=== PATIENT | female | born 1950 | race Caucasian/White ===

== ENCOUNTER 2017-07-18 07:33 | Inpatient (IN) | payer OTHER ==
[2017-07-16 16:55] VITALS: BMI 30.4
[2017-07-18] MEDS ORDERED: oxyCODONE HCL 5 MG TABLET ONE (16:33)
[2017-07-18] MEDS ORDERED: ACETAMINOPHEN 325 MG TABLET (FP) ONE (16:34)
[2017-07-19] MEDS: ACETAMINOPHEN 325 MG TABLET (FP) PO PRN ×3 (01:42→21:46)
[2017-07-19] MEDS ORDERED: LEVOTHYROXINE NA 25 MCG TABLET (FP) ONE (05:22)
[2017-07-19] MEDS ORDERED: LEVOTHYROXINE NA 112 MCG TABLET (FP) ONE (05:22)
[2017-07-19] MEDS: LEVOTHYROXINE 112 MCG, LEVOTHYROXINE 25 MCG PO SCH (06:00)
--- NOTE | 2017-07-19 06:55 | HOSP ---
Subjective - Review of Symptoms Cardiovascular: No: Chest Pain, Palpitations, Light Headedness Gastrointestinal: No: Abdominal Pain Physical Examination Vital Signs: Vital Signs Temperature 98.3 F 07/19/17 06:15 Pulse Rate 66 07/19/17 06:15 Respiratory Rate 20 07/19/17 06:15 Blood Pressure 115/54 07/19/17 06:15 O2 Sat by Pulse Oximetry (%) 94 L 07/19/17 04:00 Constitutional: Yes: Well Nourished, No Distress, Calm Eyes: Yes: WNL, EOM Intact HENT: Yes: Atraumatic, Normocephalic Neck: Yes: Supple, Trachea Midline Cardiovascular: Yes: Regular Rate and Rhythm Respiratory: Yes: Regular, Diminished (diminished on right laterally and lateral apex, present medially, base and medial apex. CTAB throughout on left lung), On Nasal O2 (3L). No: Accessory Muscle Use, SOB, Stridor, Tachypnea Gastrointestinal: Yes: WNL Extremities: Yes: WNL Wound/Incision: Yes: Clean/Dry, Dressing Dry and Intact Hospitalist Encounter Assessment: no documentation to review. called by nursing when patient was c/o of sharp right pain and nurse was unable to hear breath sounds. On my PE pt had right sided breath sounds, however diminished. Chest tube dressing in intact and in place. Chest tube set to wall suction, without any visible air leaks in pleur-vac Pt was resting comfortably on left side. vitals stable. Stat chest xray ordered Dr. Edwards has been called, as per nursing awaiting call back. Recommendations/Interventions: f/u chest xray to assess tube placement and size pneumothorax as the primary to follow-up on results and re-assess the patient. Visit type - Emergency Visit Emergency Visit: No - New Patient This patient is new to me today: Yes Date on this admission: 07/19/17 - Critical Care Critical Care patient: No
[2017-07-19 08:00] LABS: BASO % 0.4 % (0-2.0); EOS % 4.1 % (0-4.5); HEMATOCRIT 41.2 % (32.4-45.2); LYMPH % 16.5 % (8-40); MCH 30.6 pg (25.7-33.7); MEAN CELL VOLUME 90.2 fl (80-96); MEAN PLT VOLUME 8.1 fl (7.5-11.1); MONO % 4.1 % (3.8-10.2); NEUT % 74.9 % (42.8-82.8); PLATELET COUNT 340 K/MM3 (134-434); RBC 4.57 M/mm3 (3.60-5.2); RDW 13.8 % (11.6-15.6); WHITE BLOOD COUNT 9.2 K/mm3 (4.0-10.0)
[2017-07-19 08:46] LABS: ALBUMIN 3.3 g/dl (3.4-5.0); ANION GAP 6 (8-16); BLOOD UREA NITROGEN 16 mg/dL (7-18); CALCIUM 8.5 mg/dL (8.5-10.1); CHLORIDE 104 mmol/L (98-107); CO2 30 mmol/L (21-32); GLUCOSE,RANDOM 88 mg/dL (74-106); POTASSIUM 4.6 mmol/L (3.5-5.1); SGOT/AST 12 U/L (15-37); SGPT/ALT 18 U/L (12-78); SODIUM 140 mmol/L (136-145)
[2017-07-19 08:48] LABS: ALK PHOS 93 U/L (45-117); BILIRUBIN,TOTAL 0.4 mg/dL (0.2-1.0)
--- NOTE | 2017-07-19 08:54 | CON.PULM ---
Consult Consult Specialty:: PULMONARY Referred by:: BROOK Reason for Consultation:: LUNG MASS/PTX - History of Present Illness Chief Complaint: SOB History of Present Illness: 66 WHITE FEMALE ACTIVE SMOKER PRESENTS TO PMD LAST MONTH AND FOUND TO HAVE A LARGE RUL MASS. PATIENT HAD NEEDLE BX WITH SUBSEQUENT PTX REQUIRING ADMISSION AND PIG TAIL CATHETER DRAINAGE. PATIENT BECAME MORE SOB OVERNIGHT AND FOUND TO HAVE AN INCREASING RIGHT PTX DESPITE PIGTAIL CATHETER DRAINAGE TO SUCTION. 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 No: AFIB Pulmonary: No: COPD, O2 Dependent Gastrointestinal: No: Ascites Hepatobiliary: No: Cirrhosis Renal/: No: Renal Failure Reproductive: Yes: Postmenopausal ...: No Heme/Onc: No: Anemia Endocrine: Yes: Hypothyroidism - Smoking History Smoking history: Current every day smoker Have you smoked in the past 12 months: Yes If you are a former smoker, when did you quit?: today - Social History Place of : [facility] History of Recent Travel: No Home Medications - Allergies Allergies/Adverse Reactions: Allergies Allergy/AdvReac Type Severity Reaction Status Date / Time Penicillins AdvReac Intermediate Hives Verified 07/18/17 08:00 - Home Medications Home Medications: Ambulatory Orders Aspirin 81 mg PO DAILY 07/16/17 Levothyroxine Sodium 137 mcg PO ACBK 07/16/17 Lisinopril [Prinivil] 20 mg PO DAILY 07/16/17 Multivitamin [Multiple Vitamins] 1 each PO DAILY 07/16/17 Simvastatin 20 mg PO DAILY 07/16/17 Family Disease History - Family Disease History Family History: Unremarkable Review of Systems - Review of Systems Constitutional: denies: Fever Eyes: denies: Blurred Vision HENT: denies: Difficult Swallowing Neck: denies: Decreased ROM Cardiovascular: reports: Chest Pain, Shortness of Breath. denies: Palpitations Respiratory: reports: SOB, SOB on Exertion. denies: Hemoptysis, Wheezing Gastrointestinal: denies: Abdominal Pain Genitourinary: denies: Burning Physical Exam Vital Sings: Vital Signs Temperature 98.3 F 07/19/17 06:15 Pulse Rate 66 07/19/17 06:15 Respiratory Rate 20 07/19/17 06:15 Blood Pressure 115/54 07/19/17 06:15 O2 Sat by Pulse Oximetry (%) 94 L 07/19/17 04:00 Constitutional: Yes: Calm Eyes: Yes: EOM Intact HENT: Yes: Normocephalic Neck: Yes: Trachea Midline Cardiovascular: Yes: Regular Rate and Rhythm Respiratory: Yes: Diminished (ON RIGHT DIFFUSELY/PIG TAIL CATHETER TO SUCTION) Renal/: Yes: WNL Musculoskeletal: Yes: WNL Extremities: Yes: WNL Edema: No Integumentary: Yes: WNL Neurological: Yes: Alert ...Motor Strength: WNL Psychiatric: Yes: WNL Labs: CBC, BMP 07/19/17 07:00 REST REVIEWED Imaging - Results Chest X-ray: Report Reviewed, Image Reviewed X-ray: Report Reviewed, Image Reviewed Cat Scan: Report Reviewed, Image Reviewed Problem List - Problems (1) Mass of right lung Code(s): R91.8 - OTHER NONSPECIFIC ABNORMAL FINDING OF LUNG FIELD (2) Pneumothorax of right lung after biopsy Code(s): J95.811 - POSTPROCEDURAL PNEUMOTHORAX (3) HTN (hypertension) Code(s): I10 - ESSENTIAL (PRIMARY) HYPERTENSION (4) Hypothalamic hypothyroidism Code(s): E03.8 - OTHER SPECIFIED HYPOTHYROIDISM (5) Hypothyroidism Code(s): E03.9 - HYPOTHYROIDISM, UNSPECIFIED (6) Hyperlipidemia Code(s): E78.5 - HYPERLIPIDEMIA, UNSPECIFIED Assessment/Plan LUNG MASS S/P NEEDLE BX WITH LARGE RIGHT PNEUMOTHORAX REGUIRING CHEST TUBE DRAINAGE HTN HYPOTHYROIDISM HPL COPD ACTIVE SMOKER WILL SPEAK WITH IR THIS AM TO CONSIDER LARGE BORE CT DRAINAGE T-SURG EVAL CONTINUE HOME MEDS O2 NEEDED Pavithra TANNER MD
[2017-07-19] MEDS: MULTIVITAMINS (DAILY MVI) TABLET (FP) PO SCH (09:44)
[2017-07-19] MEDS: LISINOPRIL 20 MG TABLET (FP) PO SCH (09:44)
[2017-07-19] MEDS: ASPIRIN 81 MG CHEWABLE TABLETS PO SCH (09:44)
--- NOTE | 2017-07-19 10:43 | HP ---
Admitting History and Physical - Admission History of Present Illness: Pt is a 66 y/o female w/ PMH significant for HTN, HLD, hypothyroidism and was dx 'ed about 1 month ago w/ a RUL lung mass. Pt was having bx of RUL mass and subsequently developed a pneumothorax and a pig tail cath/chest tube was placed. Pt does complain of increase pain and SOB. Pt denies any fever/chills/ wheezing/cough. - Past Medical History Cardiovascular: Yes: HTN, Hyperlipdemia Pulmonary: Yes: Other (RUL lung mass) ...: No Endocrine: Yes: Hypothyroidism - Smoking History Smoking history: Current every day smoker Have you smoked in the past 12 months: Yes If you are a former smoker, when did you quit?: today - Social History History of Recent Travel: No Home Medications - Allergies Allergies/Adverse Reactions: Allergies Allergy/AdvReac Type Severity Reaction Status Date / Time Penicillins AdvReac Intermediate Hives Verified 07/18/17 08:00 - Home Medications Home Medications: Ambulatory Orders Aspirin 81 mg PO DAILY 07/16/17 Levothyroxine Sodium 137 mcg PO ACBK 07/16/17 Lisinopril [Prinivil] 20 mg PO DAILY 07/16/17 Multivitamin [Multiple Vitamins] 1 each PO DAILY 07/16/17 Simvastatin 20 mg PO DAILY 07/16/17 Family Disease History - Family Disease History Family History: Unremarkable Review of Systems - Review of Systems Constitutional: reports: No Symptoms Eyes: reports: No Symptoms HENT: reports: No Symptoms Neck: reports: No Symptoms Cardiovascular: reports: Shortness of Breath Respiratory: reports: SOB Gastrointestinal: reports: No Symptoms Physical Examination Vital Signs: Vital Signs Temperature 98.3 F 07/19/17 06:15 Pulse Rate 63 07/19/17 10:37 Respiratory Rate 20 07/19/17 10:37 Blood Pressure 144/61 07/19/17 10:37 O2 Sat by Pulse Oximetry (%) 99 07/19/17 10:37 Constitutional: Yes: Well Nourished HENT: Yes: WNL Neck: Yes: WNL, Supple Cardiovascular: Yes: WNL, Regular Rate and Rhythm Respiratory: Yes: WNL, Regular, CTA Bilaterally, Other ((+) rt sided pigtail cath to suction) Gastrointestinal: Yes: WNL, Normal Bowel Sounds, Soft Musculoskeletal: Yes: WNL Extremities: Yes: WNL Edema: No Neurological: Yes: WNL, Alert, Oriented ...Motor Strength: WNL Labs: CBC, BMP 07/19/17 07:00 07/19/17 07:00 Problem List - Problems (1) Pneumothorax of right lung after biopsy Assessment/Plan: Serial CXR Cont chest tube to suction Pulmonary consult Pain control Code(s): J95.811 - POSTPROCEDURAL PNEUMOTHORAX (2) Mass of right lung Assessment/Plan: Await lung bx pathology Code(s): R91.8 - OTHER NONSPECIFIC ABNORMAL FINDING OF LUNG FIELD (3) HTN (hypertension) Assessment/Plan: Cont asa/lisinopril Code(s): I10 - ESSENTIAL (PRIMARY) HYPERTENSION (4) Hypothyroidism Assessment/Plan: Cont levothyroxine Code(s): E03.9 - HYPOTHYROIDISM, UNSPECIFIED (5) Hyperlipidemia Assessment/Plan: Cont lipitor Code(s): E78.5 - HYPERLIPIDEMIA, UNSPECIFIED
[2017-07-19] MEDS ORDERED: morphine SULFATE 4 MG/ML VIAL IVPUSH ONE (11:00)
[2017-07-19] MEDS ORDERED: morphine SULFATE 4 MG/ML VIAL IVPUSH PRN (11:53)
[2017-07-19] MEDS: ATORVASTATIN CA 10 MG TABLET (FP) PO SCH (21:47)
[2017-07-20] MEDS ORDERED: LEVOTHYROXINE NA 25 MCG TABLET (FP) ONE (06:10)
[2017-07-20] MEDS ORDERED: LEVOTHYROXINE NA 112 MCG TABLET (FP) ONE (06:11)
[2017-07-20] MEDS: LEVOTHYROXINE 112 MCG, LEVOTHYROXINE 25 MCG PO SCH (06:26)
[2017-07-20 07:35] LABS: BASO % 0.3 % (0-2.0); EOS % 4.8 % (0-4.5); HEMATOCRIT 37.5 % (32.4-45.2); HEMOGLOBIN 12.9 GM/dL (10.7-15.3); LYMPH % 14.7 % (8-40); MCH 30.4 pg (25.7-33.7); MCHC 34.3 g/dl (32.0-36.0); MEAN CELL VOLUME 88.7 fl (80-96); MEAN PLT VOLUME 7.8 fl (7.5-11.1); MONO % 4.7 % (3.8-10.2); NEUT % 75.5 % (42.8-82.8); PLATELET COUNT 320 K/MM3 (134-434); RBC 4.23 M/mm3 (3.60-5.2); RDW 13.7 % (11.6-15.6); WHITE BLOOD COUNT 10.3 K/mm3 (4.0-10.0)
[2017-07-20 08:25] LABS: CHLORIDE 103 mmol/L (98-107); POTASSIUM 4.6 mmol/L (3.5-5.1); SODIUM 138 mmol/L (136-145)
--- NOTE | 2017-07-20 08:40 | PN ---
Progress Note (short form) - Note Progress Note: Thoracic Surgery: Images reviewed. Will see patient today. Continue tube to suction over weekend. Possible water seal on Saturday followed by clamp trial versus Heimlich valve. Biopsy results necessary for further management. Full consult to follow.
[2017-07-20 08:49] LABS: ALBUMIN 3.1 g/dl (3.4-5.0); ALK PHOS 91 U/L (45-117); ANION GAP 6 (8-16); BILIRUBIN,TOTAL 0.2 mg/dL (0.2-1.0); BLOOD UREA NITROGEN 17 mg/dL (7-18); CALCIUM 8.2 mg/dL (8.5-10.1); CO2 29 mmol/L (21-32); GLUCOSE,RANDOM 97 mg/dL (74-106); SGOT/AST 11 U/L (15-37); SGPT/ALT 14 U/L (12-78); TOT PROT 6.5 g/dl (6.4-8.2)
[2017-07-20] MEDS: LISINOPRIL 20 MG TABLET (FP) PO SCH (09:00)
[2017-07-20] MEDS: MULTIVITAMINS (DAILY MVI) TABLET (FP) PO SCH (09:00)
[2017-07-20] MEDS: ASPIRIN 81 MG CHEWABLE TABLETS PO SCH (09:00)
[2017-07-20] MEDS: ACETAMINOPHEN 325 MG TABLET (FP) PO PRN (10:32)
--- NOTE | 2017-07-20 10:32 | PN ---
Progress Note (short form) - Note Progress Note: PULMONARY VSS/AFEBRILE CHEST TUBE DRAINAGE IN PLACE CXR RESOLUTION OF RIGHT PTX/LARGE RUL MASS AWAITING PATH T-SURG INPUT APPRECIATED LEAVE TUBE TO SUCTION Pavithra TANNER MD Problem List - Problems (1) Mass of right lung Code(s): R91.8 - OTHER NONSPECIFIC ABNORMAL FINDING OF LUNG FIELD (2) Pneumothorax of right lung after biopsy Code(s): J95.811 - POSTPROCEDURAL PNEUMOTHORAX (3) HTN (hypertension) Code(s): I10 - ESSENTIAL (PRIMARY) HYPERTENSION (4) Hypothalamic hypothyroidism Code(s): E03.8 - OTHER SPECIFIED HYPOTHYROIDISM (5) Hypothyroidism Code(s): E03.9 - HYPOTHYROIDISM, UNSPECIFIED (6) Hyperlipidemia Code(s): E78.5 - HYPERLIPIDEMIA, UNSPECIFIED
--- NOTE | 2017-07-20 11:06 | CONSULT ---
Consult Consult Specialty:: Thoracic Surgery Referred by:: Dr. Sanchez Reason for Consultation:: PTX - History of Present Illness Chief Complaint: SOB, PTX History of Present Illness: 66F active smoker (quit last week), COPD, HTN, Graves dz, now hypothyroid seen at [facility] who recommended CXR and EKG. CXR showed large RUL mass. CT showed that along with mediastinal adenopathy and possible lytic bone lesions per report. Denies hemoptysis or weight loss. Got biopsy in hospital and had post-bx PTX. Lung currently expanded. No SOB. On 5L NC saturation 94%. 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 No: AFIB Pulmonary: No: COPD, O2 Dependent Gastrointestinal: No: Ascites Hepatobiliary: No: Cirrhosis Renal/: No: Renal Failure ...: No Endocrine: Yes: Hypothyroidism - Smoking History Smoking history: Current every day smoker Have you smoked in the past 12 months: Yes If you are a former smoker, when did you quit?: today - Social History History of Recent Travel: No Home Medications - Allergies Allergies/Adverse Reactions: Allergies Allergy/AdvReac Type Severity Reaction Status Date / Time Penicillins AdvReac Intermediate Hives Verified 07/18/17 08:00 - Home Medications Home Medications: Ambulatory Orders Aspirin 81 mg PO DAILY 07/16/17 Levothyroxine Sodium 137 mcg PO ACBK 07/16/17 Lisinopril [Prinivil] 20 mg PO DAILY 07/16/17 Multivitamin [Multiple Vitamins] 1 each PO DAILY 07/16/17 Simvastatin 20 mg PO DAILY 07/16/17 Family Disease History - Family Disease History Family History: Unremarkable Review of Systems - Review of Systems Constitutional: reports: No Symptoms Eyes: reports: No Symptoms HENT: reports: No Symptoms Neck: reports: No Symptoms Cardiovascular: reports: No Symptoms Respiratory: reports: SOB on Exertion Gastrointestinal: reports: No Symptoms Genitourinary: reports: No Symptoms Musculoskeletal: reports: No Symptoms Physical Exam Vital Signs: Vital Signs Temperature 98.8 F 07/20/17 09:00 Pulse Rate 50 L 07/20/17 09:00 Respiratory Rate 20 07/20/17 09:00 Blood Pressure 118/46 07/20/17 09:00 O2 Sat by Pulse Oximetry (%) 95 07/20/17 09:00 Constitutional: Yes: Well Nourished Eyes: Yes: Other (proptosis) Neck: Yes: Supple Cardiovascular: Yes: Regular Rate and Rhythm Respiratory: Yes: Regular, Other (right chest tube in place, not tidaling, no air-leak present however, no sq emphysema) Labs: CBC, BMP 07/20/17 06:00 07/20/17 06:00 Imaging - Results Chest X-ray: Image Reviewed (Expanded right lung with chest tube in place) Problem List - Problems (1) Hypothyroidism Code(s): E03.9 - HYPOTHYROIDISM, UNSPECIFIED (2) Mass of right lung Code(s): R91.8 - OTHER NONSPECIFIC ABNORMAL FINDING OF LUNG FIELD (3) Pneumothorax of right lung after biopsy Code(s): J95.811 - POSTPROCEDURAL PNEUMOTHORAX Assessment/Plan PTX resolving s/p bx for RUL lung mass: -Likely lung cancer, advanced to stage 3 (mediastinal adenopathy) or 4 (bone mets?), f/u pathology -Chest tube to suction over , water seal Saturday, possible clamp trial Saturday -Needs formal staging, recommend PET scan as outpatient, possible EBUS versus bone biopsy
[2017-07-20] MEDS: ATORVASTATIN CA 10 MG TABLET (FP) PO SCH (21:23)
--- NOTE | 2017-07-20 23:31 | PN ---
Progress Note, Physician History of Present Illness: Pt still w/ pain but no SOB - Current Medication List Current Medications: Active Medications Acetaminophen (Tylenol -) 650 mg PO Q6H PRN PRN Reason: PAIN LEVEL 4 - 6 Last Admin: 07/20/17 10:32 Dose: 650 mg Aspirin (Asa -) 81 mg PO DAILY [facility] Last Admin: 07/20/17 09:00 Dose: 81 mg Atorvastatin Calcium (Lipitor -) 10 mg PO HS [facility] Last Admin: 07/20/17 21:23 Dose: 10 mg Levothyroxine Sodium 112 mcg/ (Levothyroxine Sodium 25 mcg) 137 mcg PO DAILY@ 0700 [facility] Last Admin: 07/20/17 06:26 Dose: 137 mcg Lisinopril (Prinivil) 20 mg PO DAILY [facility] Last Admin: 07/20/17 09:00 Dose: 20 mg Morphine Sulfate (Morphine Sulfate) 2 mg IVPUSH Q4H PRN PRN Reason: PAIN SCALE 6-10 Last Admin: 07/19/17 11:59 Dose: 2 mg Multivitamins/Minerals/Vitamin C (Tab-A-Vit -) 1 tab PO DAILY [facility] Last Admin: 07/20/17 09:00 Dose: 1 tab - Objective Vital Signs: Vital Signs Temperature 98.3 F 07/20/17 17:19 Pulse Rate 50 L 07/20/17 17:19 Respiratory Rate 20 07/20/17 17:19 Blood Pressure 110/49 07/20/17 17:19 O2 Sat by Pulse Oximetry (%) 95 07/20/17 09:00 Constitutional: Yes: Well Nourished Neck: Yes: WNL, Supple Cardiovascular: Yes: WNL, Regular Rate and Rhythm Respiratory: Yes: Regular, CTA Bilaterally, Other ((+) pigtail cath Rt chest wall) Gastrointestinal: Yes: WNL, Normal Bowel Sounds, Soft Labs: CBC, BMP 07/20/17 06:00 07/20/17 06:00 Problem List - Problems (1) Pneumothorax of right lung after biopsy Assessment/Plan: Serial CXR showed improvement Cont chest tube to suction Pulmonary consult/Surgery consults noted Pain control Code(s): J95.811 - POSTPROCEDURAL PNEUMOTHORAX (2) Mass of right lung Assessment/Plan: Await lung bx pathology Probable malginancy Agree w/ PET scan and further w/u as outpt Code(s): R91.8 - OTHER NONSPECIFIC ABNORMAL FINDING OF LUNG FIELD (3) HTN (hypertension) Assessment/Plan: Cont asa/lisinopril Code(s): I10 - ESSENTIAL (PRIMARY) HYPERTENSION (4) Hyperlipidemia Assessment/Plan: Cont lipitor Code(s): E78.5 - HYPERLIPIDEMIA, UNSPECIFIED (5) Hypothyroidism Assessment/Plan: Cont levothyroxine Code(s): E03.9 - HYPOTHYROIDISM, UNSPECIFIED
[2017-07-21] MEDS ORDERED: LEVOTHYROXINE NA 25 MCG TABLET (FP) ONE (05:43)
[2017-07-21] MEDS ORDERED: LEVOTHYROXINE NA 112 MCG TABLET (FP) ONE (05:43)
[2017-07-21] MEDS: LEVOTHYROXINE 112 MCG, LEVOTHYROXINE 25 MCG PO SCH (06:29)
[2017-07-21] MEDS: LISINOPRIL 20 MG TABLET (FP) PO SCH (10:51)
[2017-07-21] MEDS: MULTIVITAMINS (DAILY MVI) TABLET (FP) PO SCH (10:51)
[2017-07-21] MEDS: ASPIRIN 81 MG CHEWABLE TABLETS PO SCH (10:51)
--- NOTE | 2017-07-21 18:27 | PN ---
Progress Note, Physician History of Present Illness: Pt complains of constipation - Current Medication List Current Medications: Active Medications Acetaminophen (Tylenol -) 650 mg PO Q6H PRN PRN Reason: PAIN LEVEL 4 - 6 Last Admin: 07/20/17 10:32 Dose: 650 mg Aspirin (Asa -) 81 mg PO DAILY [facility] Last Admin: 07/21/17 10:51 Dose: 81 mg Atorvastatin Calcium (Lipitor -) 10 mg PO HS [facility] Last Admin: 07/20/17 21:23 Dose: 10 mg Levothyroxine Sodium 112 mcg/ (Levothyroxine Sodium 25 mcg) 137 mcg PO DAILY@ 0700 [facility] Last Admin: 07/21/17 06:29 Dose: 137 mcg Lisinopril (Prinivil) 20 mg PO DAILY [facility] Last Admin: 07/21/17 10:51 Dose: 20 mg Morphine Sulfate (Morphine Sulfate) 2 mg IVPUSH Q4H PRN PRN Reason: PAIN SCALE 6-10 Last Admin: 07/19/17 11:59 Dose: 2 mg Multivitamins/Minerals/Vitamin C (Tab-A-Vit -) 1 tab PO DAILY [facility] Last Admin: 07/21/17 10:51 Dose: 1 tab - Objective Vital Signs: Vital Signs Temperature 99.2 F 07/21/17 15:48 Pulse Rate 62 07/21/17 15:48 Respiratory Rate 22 07/21/17 15:48 Blood Pressure 118/65 07/21/17 15:48 O2 Sat by Pulse Oximetry (%) 97 07/21/17 09:00 Constitutional: Yes: Well Nourished Neck: Yes: WNL, Supple Cardiovascular: Yes: WNL, Regular Rate and Rhythm Respiratory: Yes: Regular, CTA Bilaterally, Other ((+) rt chest wall pigtail cath to suction) Gastrointestinal: Yes: WNL, Normal Bowel Sounds, Soft Labs: CBC, BMP 07/20/17 06:00 07/20/17 06:00 Problem List - Problems (1) Pneumothorax of right lung after biopsy Assessment/Plan: Serial CXR showed improvement Cont chest tube to suction Possible water seal w/ clamping tomorrow Due to constipation probably due to pain meds and [id number] ambulation Will add colace Code(s): J95.811 - POSTPROCEDURAL PNEUMOTHORAX (2) Mass of right lung Assessment/Plan: Await lung bx pathology Probable malginancy Agree w/ PET scan and further w/u as outpt Code(s): R91.8 - OTHER NONSPECIFIC ABNORMAL FINDING OF LUNG FIELD (3) HTN (hypertension) Assessment/Plan: Cont asa/lisinopril Code(s): I10 - ESSENTIAL (PRIMARY) HYPERTENSION (4) Hyperlipidemia Assessment/Plan: Cont lipitor Code(s): E78.5 - HYPERLIPIDEMIA, UNSPECIFIED (5) Hypothyroidism Assessment/Plan: Cont levothyroxine Code(s): E03.9 - HYPOTHYROIDISM, UNSPECIFIED
[2017-07-21] MEDS: HEPARIN NA (PORCINE) 5,000 UNITS/ML 1ML VIAL SQ SCH (21:10)
[2017-07-21] MEDS: ATORVASTATIN CA 10 MG TABLET (FP) PO SCH (21:10)
[2017-07-22] MEDS ORDERED: LEVOTHYROXINE NA 25 MCG TABLET (FP) ONE (05:30)
[2017-07-22] MEDS ORDERED: LEVOTHYROXINE NA 112 MCG TABLET (FP) ONE (05:31)
[2017-07-22] MEDS: LEVOTHYROXINE 112 MCG, LEVOTHYROXINE 25 MCG PO SCH (06:10)
[2017-07-22 07:41] LABS: BASO % 0.4 % (0-2.0); EOS % 13.7 % (0-4.5); HEMATOCRIT 40.4 % (32.4-45.2); HEMOGLOBIN 13.4 GM/dL (10.7-15.3); LYMPH % 16.2 % (8-40); MCH 29.8 pg (25.7-33.7); MCHC 33.1 g/dl (32.0-36.0); MEAN CELL VOLUME 90.1 fl (80-96); MEAN PLT VOLUME 7.8 fl (7.5-11.1); MONO % 4.1 % (3.8-10.2); NEUT % 65.6 % (42.8-82.8); PLATELET COUNT 340 K/MM3 (134-434); RBC 4.48 M/mm3 (3.60-5.2); RDW 13.5 % (11.6-15.6); WHITE BLOOD COUNT 9.6 K/mm3 (4.0-10.0)
[2017-07-22 08:12] LABS: ALBUMIN 3.2 g/dl (3.4-5.0); ANION GAP 3 (8-16); BLOOD UREA NITROGEN 16 mg/dL (7-18); CALCIUM 8.6 mg/dL (8.5-10.1); CHLORIDE 104 mmol/L (98-107); CO2 32 mmol/L (21-32); GLUCOSE,RANDOM 93 mg/dL (74-106); POTASSIUM 4.5 mmol/L (3.5-5.1); SGOT/AST 10 U/L (15-37); SGPT/ALT 15 U/L (12-78); SODIUM 139 mmol/L (136-145)
[2017-07-22 08:15] LABS: ALK PHOS 88 U/L (45-117); BILIRUBIN,TOTAL 0.3 mg/dL (0.2-1.0); CREATININE 0.9 mg/dL (0.55-1.02); TOT PROT 6.9 g/dl (6.4-8.2)
[2017-07-22] MEDS: MULTIVITAMINS (DAILY MVI) TABLET (FP) PO SCH (09:24)
[2017-07-22] MEDS: LISINOPRIL 20 MG TABLET (FP) PO SCH (09:24)
[2017-07-22] MEDS: HEPARIN NA (PORCINE) 5,000 UNITS/ML 1ML VIAL SQ SCH ×2 (09:24→21:11)
[2017-07-22] MEDS: ASPIRIN 81 MG CHEWABLE TABLETS PO SCH (09:24)
--- NOTE | 2017-07-22 09:47 | PN ---
Progress Note (short form) - Note Progress Note: PULMONARY Denies shortness of breath or chest pain. Chest tube on low wall suction. AM CXR pending. Last Vital Signs Temp Pulse Resp BP Pulse Ox 98.6 F 55 L 20 116/60 98 07/22/17 09:17 07/22/17 09:17 07/22/17 09:17 07/22/17 09:17 07/21/17 21:00 Gen: NAD in chair Heart: RRR Lung: equal breath sounds Abd: soft, nontender Ext: no edema Chest tube: serous drainage, no air leak CBC, BMP 07/22/17 06:15 07/22/17 06:15 Active Medications Acetaminophen (Tylenol -) 650 mg PO Q6H PRN PRN Reason: PAIN LEVEL 4 - 6 Last Admin: 07/20/17 10:32 Dose: 650 mg Aspirin (Asa -) 81 mg PO DAILY [facility] Last Admin: 07/22/17 09:24 Dose: 81 mg Atorvastatin Calcium (Lipitor -) 10 mg PO HS [facility] Last Admin: 07/21/17 21:10 Dose: 10 mg Heparin Sodium (Porcine) (Heparin -) 5,000 unit SQ BID [facility] Last Admin: 07/22/17 09:24 Dose: 5,000 unit Levothyroxine Sodium 112 mcg/ (Levothyroxine Sodium 25 mcg) 137 mcg PO DAILY@ 0700 [facility] Last Admin: 07/22/17 06:10 Dose: 137 mcg Lisinopril (Prinivil) 20 mg PO DAILY [facility] Last Admin: 07/22/17 09:24 Dose: 20 mg Morphine Sulfate (Morphine Sulfate) 2 mg IVPUSH Q4H PRN PRN Reason: PAIN SCALE 6-10 Last Admin: 07/19/17 11:59 Dose: 2 mg Multivitamins/Minerals/Vitamin C (Tab-A-Vit -) 1 tab PO DAILY [facility] Last Admin: 07/22/17 09:24 Dose: 1 tab A/P Lung Mass s/p CT guided needle biopsy Post Procedure Pneumothorax HTN Hypercholesterolemia Hypothyroidism - f/u CXR - if no pneumothorax, can place chest tube to water seal - f/u pathology - DVT prophylaxis
--- NOTE | 2017-07-22 12:58 | PATH ---
Surgical Pathology Report Patient Name: CAITLIN GONZALES Med. Rec. #: [id number] /Age/Gender: 1950 (Age: 66) / F Account: [id number] Location: [facility] MED/SURG Taken: 07/17/2017 Received: 07/18/2017 Reported: 07/22/2017 Physicians: Lyle Barlow M.D. [place] Sanchez M.D. Kalpesh Noguera M.D. Heavenly Feliciano MD Specimen(s) Received RIGHT LUNG BIOPSY Clinical History 66 year old female with large right upper lobe lung mass Final Diagnosis LUNG, RIGHT, UPPER LOBE, BIOPSY: INVASIVE ADENOCARCINOMA, MODERATELY DIFFERENTIATED WITH ASSOCIATED NECROSIS. Comment: The biopsy cores show large areas of tumor necrosis, fibrosis, and few aggregates of viable tumor. Immunohistochemical stains performed and interpreted at [facility] show the tumor is positive for CK7 and TTF-1. Immunohistochemical stains performed at [place], [place] ([id number]) and interpreted at [facility] show the tumor is positive for Napsin-A. The above immunophenotype supports the diagnosis. Case seen interdepartmentally. Findings discussed with Dr. Neri. Electronically Signed Joanie Cohen M.D. Gross Description Received in formalin labeled "right lung biopsy," are 3 colon, cylindrical portions of soft tissue ranging from 0.3-0.6 cm in length and averaging 0.1 cm in diameter. The specimens are submitted in toto in one cassette. 07/18/201707/18/2017
[2017-07-22] MEDS: ATORVASTATIN CA 10 MG TABLET (FP) PO SCH (21:11)
--- NOTE | 2017-07-22 22:30 | PN ---
Progress Note, Physician History of Present Illness: Chest tube removed Pt denies any SOB - Current Medication List Current Medications: Active Medications Acetaminophen (Tylenol -) 650 mg PO Q6H PRN PRN Reason: PAIN LEVEL 4 - 6 Last Admin: 07/20/17 10:32 Dose: 650 mg Aspirin (Asa -) 81 mg PO DAILY [facility] Last Admin: 07/22/17 09:24 Dose: 81 mg Atorvastatin Calcium (Lipitor -) 10 mg PO HS [facility] Last Admin: 07/22/17 21:11 Dose: 10 mg Heparin Sodium (Porcine) (Heparin -) 5,000 unit SQ BID [facility] Last Admin: 07/22/17 21:11 Dose: 5,000 unit Levothyroxine Sodium 112 mcg/ (Levothyroxine Sodium 25 mcg) 137 mcg PO DAILY@ 0700 [facility] Last Admin: 07/22/17 06:10 Dose: 137 mcg Lisinopril (Prinivil) 20 mg PO DAILY [facility] Last Admin: 07/22/17 09:24 Dose: 20 mg Multivitamins/Minerals/Vitamin C (Tab-A-Vit -) 1 tab PO DAILY [facility] Last Admin: 07/22/17 09:24 Dose: 1 tab - Objective Vital Signs: Vital Signs Temperature 97.5 F L 07/22/17 16:56 Pulse Rate 86 07/22/17 16:56 Respiratory Rate 20 07/22/17 16:56 Blood Pressure 103/53 07/22/17 16:56 O2 Sat by Pulse Oximetry (%) 100 07/22/17 09:00 Neck: Yes: WNL, Supple Cardiovascular: Yes: WNL, Regular Rate and Rhythm Respiratory: Yes: WNL, Regular, CTA Bilaterally Gastrointestinal: Yes: WNL, Normal Bowel Sounds, Soft Labs: CBC, BMP 07/22/17 06:15 07/22/17 06:15 Problem List - Problems (1) Pneumothorax of right lung after biopsy Assessment/Plan: Chest tube remove Repeat CXR pending Code(s): J95.811 - POSTPROCEDURAL PNEUMOTHORAX (2) Mass of right lung Assessment/Plan: S/P lung bx of RUL mass Await lung bx pathology Probable malginancy Agree w/ PET scan and further w/u as outpt Code(s): R91.8 - OTHER NONSPECIFIC ABNORMAL FINDING OF LUNG FIELD (3) HTN (hypertension) Assessment/Plan: Cont asa/lisinopril Code(s): I10 - ESSENTIAL (PRIMARY) HYPERTENSION (4) Hyperlipidemia Assessment/Plan: Cont lipitor Code(s): E78.5 - HYPERLIPIDEMIA, UNSPECIFIED (5) Hypothyroidism Assessment/Plan: Cont levothyroxine Code(s): E03.9 - HYPOTHYROIDISM, UNSPECIFIED
[2017-07-23] MEDS ORDERED: LEVOTHYROXINE NA 25 MCG TABLET (FP) ONE (05:31)
[2017-07-23] MEDS ORDERED: LEVOTHYROXINE NA 112 MCG TABLET (FP) ONE (05:32)
[2017-07-23] MEDS: LEVOTHYROXINE 112 MCG, LEVOTHYROXINE 25 MCG PO SCH (06:05)
[2017-07-23] MEDS ORDERED: PT OWN MED DRAWER 7, Y5N ONE (09:00)
[2017-07-23] MEDS: LISINOPRIL 20 MG TABLET (FP) PO SCH (09:05)
[2017-07-23] MEDS: MULTIVITAMINS (DAILY MVI) TABLET (FP) PO SCH (09:05)
[2017-07-23] MEDS: ASPIRIN 81 MG CHEWABLE TABLETS PO SCH (09:05)
[2017-07-23] MEDS: HEPARIN NA (PORCINE) 5,000 UNITS/ML 1ML VIAL SQ SCH (09:08)
--- NOTE | 2017-07-23 10:10 | PN ---
Progress Note (short form) - Note Progress Note: PULMONARY Denies shortness of breath or chest pain. Pigtail removed last night. CXR this AM without pneumothorax. Last Vital Signs Temp Pulse Resp BP Pulse Ox 98.3 F 53 L 20 103/54 100 07/23/17 06:00 07/23/17 06:00 07/23/17 06:00 07/23/17 06:00 07/22/17 21:00 Gen: NAD in chair Heart: RRR Lung: equal breath sounds Abd: soft, nontender Ext: no edema CBC, BMP 07/22/17 06:15 07/22/17 06:15 Active Medications Acetaminophen (Tylenol -) 650 mg PO Q6H PRN PRN Reason: PAIN LEVEL 4 - 6 Last Admin: 07/20/17 10:32 Dose: 650 mg Aspirin (Asa -) 81 mg PO DAILY [facility] Last Admin: 07/23/17 09:05 Dose: 81 mg Atorvastatin Calcium (Lipitor -) 10 mg PO HS [facility] Last Admin: 07/22/17 21:11 Dose: 10 mg Heparin Sodium (Porcine) (Heparin -) 5,000 unit SQ BID [facility] Last Admin: 07/23/17 09:08 Dose: 5,000 unit Levothyroxine Sodium 112 mcg/ (Levothyroxine Sodium 25 mcg) 137 mcg PO DAILY@ 0700 [facility] Last Admin: 07/23/17 06:05 Dose: 137 mcg Lisinopril (Prinivil) 20 mg PO DAILY [facility] Last Admin: 07/23/17 09:05 Dose: 20 mg Multivitamins/Minerals/Vitamin C (Tab-A-Vit -) 1 tab PO DAILY [facility] Last Admin: 07/23/17 09:05 Dose: 1 tab A/P Lung Mass s/p CT guided needle biopsy Post Procedure Pneumothorax HTN Hypercholesterolemia Hypothyroidism - f/u pathology - DVT prophylaxis - can be discharged home from pulmonary standpoint with outpt f/u, [facility]
[2017-07-23 10:12] VITALS: BP 112/54; TEMP 99
[2017-07-23 14:53] VITALS: PULSE 72
--- NOTE | 2017-07-26 00:24 | DS ---
Physical Examination Vital Signs: Vital Signs Temperature 99 F 07/23/17 08:25 Pulse Rate 72 07/23/17 14:15 Respiratory Rate 20 07/23/17 08:25 Blood Pressure 112/54 07/23/17 08:25 O2 Sat by Pulse Oximetry (%) 95 07/23/17 14:15 Labs: CBC, BMP 07/22/17 06:15 07/22/17 06:15 Discharge Summary Reason For Visit: LUNG MASS Condition: Good - Instructions Diet, Activity, Other Instructions: IF YOU DEVELOP SIGNIFICANT CHEST PAIN, SHORTNESS OF BREATH, PERSISTENT COUGH, OR COUGHING UP BLOOD, PLEASE GO TO THE EMERGENCY DEPT. FOLLOW UP WITH DR. SHARIF FOR BIOPSY RESULTS. 2 [address] sodium diet See Dr Sharif in 07/26/[address] Dr De La Fuente in 1 week Disposition: HOME - Home Medications Comprehensive Discharge Medication List: Ambulatory Orders Aspirin 81 mg PO DAILY 07/16/17 Levothyroxine Sodium 137 mcg PO ACBK 07/16/17 Lisinopril [Prinivil] 20 mg PO DAILY 07/16/17 Multivitamin [Multiple Vitamins] 1 each PO DAILY 07/16/17 Simvastatin 20 mg PO DAILY 07/16/17 Levothyroxine [Synthroid -] 137 mcg PO DAILY@0700 tablet 07/23/17
== END 2017-07-23 15:38 | disposition home or self-care (01) | DRG 200 ==
LOC: JRADIR 07:33 → JSAMEDAYSX 10:43 → INTOOBSV 16:37 → JSAMEDAYSX 16:37 → J8W 18:00 → OBSVTOIN 07-19 10:43
PROVIDERS: ADMIT Internal Medicine; ATTEND Internal Medicine
PROC: 0W9930Z Drainage of Right Pleural Cavity with Drainage Device, Percutaneous Approach (ICD-10-PCS; principal; 2017-07-18)
PROC: 0BDC4ZX Extraction of Right Upper Lung Lobe, Percutaneous Endoscopic Approach, Diagnostic (ICD-10-PCS; 2017-07-18)
PROC: 0BPQX0Z Removal of Drainage Device from Pleura, External Approach (ICD-10-PCS; 2017-07-22)
DX: J95.811 Postprocedural pneumothorax (principal); C34.11 Malignant neoplasm of upper lobe, right bronchus or lung; R91.8 Other nonspecific abnormal finding of lung field; Y83.9 Surgical procedure, unspecified as the cause of abnormal reaction of the patient, or of later complication, without mention of misadventure at the time of the procedure; E03.9 Hypothyroidism, unspecified; I10 Essential (primary) hypertension; E78.5 Hyperlipidemia, unspecified; F17.210 Nicotine dependence, cigarettes, uncomplicated
CPT/HCPCS: 32405; 32557; 36415; 49423; 71045-TC-FY; 71046-TC-FY; 76098-TC-FY; 76380-TC; 77012-TC; 80053; 85025; 87899; 88305-TC; 88341-TC; 88342-TC; 94761; C1729; C1769; G0378; J1644